=== PATIENT | male | born 1965 | race Caucasian/White ===

== ENCOUNTER 2022-11-07 11:50 | Emergency (ER) | payer BC ==
[2022-11-07] MEDS ORDERED: Sodium Chloride 0.9% 1000 ML 1,000 ML IV STA ×2 (11:57→13:35)
--- NOTE | 2022-11-07 11:57 | ERPHSYRPT ---
- History of Present Illness Time Seen by Provider: 11/07/22 11:57 Historian: patient, family Exam Limitations: no limitations Physician History: This is a 57-year-old white male who has a history of diabetes and was recently placed on Ozempic and then had an increase in his dosage recently. Initially he was having some constipation. Approximately 2 days ago he began having some diarrhea and it has increased in amount of frequency. Patient states in the last 2 days he has been having clear liquid bowel movements every 30 minutes. He has been vomiting and he is having generalized abdominal pain. Patient has a history of diabetes, hypertension and hyperlipidemia. Patient has had Dilaudid in the past which controlled his pain well and he had no difficulty or adverse effects with this medication per his recollection. Timing/Duration: day(s) (2) Activities at Onset: none Quality: cramping Abdominal Pain Onset Location: generalized abdomen Severity of Pain-Max: moderate Severity of Pain-Current: moderate Modifying Factors: Improves With: vomiting, other Associated Symptoms: diarrhea, loss of appetite, nausea (Diarrhea), vomiting Previous symptoms: no prior history Allergies/Adverse Reactions: nalbuphine [From Nubain] Allergy (Verified 11/07/22 11:54) Home Medications: Cyclobenzaprine HCl 10 mg [Cyclobenzaprine 10 MG] 10 mg PO TID PRN 11/07/22 [History] Gabapentin 300 mg PO BID 11/07/22 [History] Losartan Potassium 25 mg PO DAILY 11/07/22 [History] Nortriptyline HCl [Pamelor] 50 mg PO DAILY 11/07/22 [History] Olmesartan Medoxomil 40 mg PO DAILY 11/07/22 [History] Ondansetron ODT 4 MG [Zofran Odt 4 mg] 1 mg PO TID PRN 11/07/22 [History] Pravastatin Sodium 20 mg PO DAILY 11/07/22 [History] Semaglutide [Ozempic] 0.25 mg SQ WEEKLY 11/07/22 [History] Zolpidem Tartrate 10 mg [Ambien 10 MG] 10 mg PO HS 11/07/22 [History] glipiZIDE [Glipizide] 20 mg PO DAILY 11/07/22 [History] Travel Risk - International Travel Have you traveled outside of the country in past 3 weeks: No - Coronavirus Screening Are you exhibiting any of the following symptoms?: Yes Symptoms: Vomiting/Diarrhea Close contact with a COVID-19 positive Pt in past 14-21 Days: No - Review of Systems Constitutional: Weakness Eyes: No Symptoms Ears, Nose, & Throat: No Symptoms Respiratory: No Symptoms Cardiac: No Symptoms Abdominal/Gastrointestinal: Abdominal Pain, Nausea, Vomiting, Diarrhea, No Constipation Genitourinary Symptoms: No Symptoms Musculoskeletal: No Symptoms Skin: No Symptoms Neurological: No Symptoms Psychological: No Symptoms Endocrine: No Symptoms Hematologic/Lymphatic: No Symptoms Immunological/Allergic: No Symptoms All Other Systems: Reviewed and Negative - Past Medical History Pertinent Past Medical History: Yes - Past Surgical History Past Surgical History: Yes - Nursing Vital Signs Nursing Vital Signs: Initial Vital Signs Temperature 97.9 F 11/07/22 11:57 Pulse Rate 98 H 11/07/22 11:57 Respiratory Rate 16 11/07/22 11:57 Blood Pressure 153/105 11/07/22 11:57 O2 Sat by Pulse Oximetry 98 11/07/22 11:57 Pain Scale Pain Intensity 4 - Physical Exam General Appearance: mild distress, alert, anxiety, obese Eye Exam: PERRL/EOMI, eyes nml inspection Ears, Nose, Throat Exam: normal ENT inspection, moist mucous membranes Neck Exam: normal inspection, non-tender, supple, full range of motion Respiratory Exam: normal breath sounds, lungs clear, airway intact, No chest tenderness, No respiratory distress Cardiovascular Exam: regular rate/rhythm, normal heart sounds, normal peripheral pulses Gastrointestinal/Abdomen Exam: soft, normal bowel sounds, tenderness (Diffuse), guarding, No pulsatile mass (Diffuse with palpation) Rectal Exam: not done Back Exam: normal inspection, normal range of motion, No CVA tenderness, No vertebral tenderness Extremity Exam: normal inspection, normal range of motion, pelvis stable Neurologic Exam: alert, oriented x 3, cooperative, utility repairer II-XII nml as tested, normal mood/affect, nml cerebellar function, nml station & gait, sensation nml Skin Exam: normal color, warm, dry Lymphatic Exam: No adenopathy SpO2 Interpretation: normal O2 Delivery: Room Air - Course Nursing assessment & vital signs reviewed: Yes Ordered Tests: Active Orders 24 hr Category Date Time Status IV Insertion STAT Care 11/07/22 11:57 Active ABDOMEN AND PELVIS W/0 CONTRAS [CT] Stat Exams 11/07/22 12:19 Completed AMYLASE Stat Lab 11/07/22 12:55 Completed BLOOD CULTURE Stat Lab 11/07/22 12:55 Received BMP Stat Lab 11/07/22 15:50 Completed CBC W DIFF Stat Lab 11/07/22 11:57 Completed CMP Stat Lab 11/07/22 12:55 Completed CULTURE,URINE Stat Lab 11/07/22 15:06 Received LIPASE Stat Lab 11/07/22 12:55 Completed UA W/RFX UR CULTURE Stat Lab 11/07/22 15:06 Completed Medication Summary Generic Name Dose Route Start Last Admin Trade Name Freq PRN Reason Stop Dose Admin Sodium Chloride 500 mls @ 500 mls/hr 11/07/22 16:17 11/07/22 16:20 Sodium Chloride 0.9% 500 Ml IV 11/07/22 17:16 500 mls/hr .Q1H ONE Administration Discontinued Medications Generic Name Dose Route Start Last Admin Trade Name Freq PRN Reason Stop Dose Admin Hydromorphone HCl 1 mg 11/07/22 12:18 11/07/22 12:23 Hydromorphone 1 Mg/1ml Inj 1 Mg/Ml Syringe IV 11/07/22 12:19 1 mg STAT ONE Administration Hydromorphone HCl Confirm 11/07/22 12:21 Hydromorphone 1 Mg/1ml Inj 1 Mg/Ml Syringe Administered 11/07/22 12:22 Dose 1 mg .ROUTE .STK-MED ONE Sodium Chloride 1,000 mls @ 999 mls/hr 11/07/22 11:57 11/07/22 13:24 Sodium Chloride 0.9% 1000 Ml IV 11/07/22 12:57 Infused .Q1H1M STA Infusion Sodium Chloride Confirm 11/07/22 12:21 Sodium Chloride 0.9% 1000 Ml Administered 11/07/22 12:22 Dose 1,000 mls @ ud .ROUTE .STK-MED ONE Sodium Chloride 1,000 mls @ 999 mls/hr 11/07/22 13:35 11/07/22 15:04 Sodium Chloride 0.9% 1000 Ml IV 11/07/22 14:35 Infused .Q1H1M STA Infusion Sodium Chloride Confirm 11/07/22 13:56 Sodium Chloride 0.9% 1000 Ml Administered 11/07/22 13:57 Dose 1,000 mls @ ud .ROUTE .STK-MED ONE Sodium Chloride Confirm 11/07/22 16:19 Sodium Chloride 0.9% 500 Ml Administered 11/07/22 16:20 Dose 500 mls @ ud IV .STK-MED ONE Metronidazole 500 mg 11/07/22 16:55 11/07/22 17:02 Metronidazole 500 Mg Tablet PO 11/07/22 16:56 500 mg STAT ONE Administration Ondansetron HCl 4 mg 11/07/22 12:18 11/07/22 12:22 Ondansetron Hcl 4 Mg/2 Ml Vial IV 11/07/22 12:19 4 mg STAT ONE Administration Ondansetron HCl Confirm 11/07/22 12:21 Ondansetron Hcl 4 Mg/2 Ml Vial Administered 11/07/22 12:22 Dose 4 mg .ROUTE .STK-MED ONE Lab/Rad Data: Laboratory Result Diagrams 11/07/22 11:57 11/07/22 15:50 Laboratory Results 11/07/22 11/07/22 11/07/22 Range/Units 15:50 15:06 13:31 WBC (4.0-10.5) x10^3/uL RBC (4.1-5.6) x10^6/uL Hgb (12.5-18.0) g/dL Hct (42-50) % MCV (78-100) fL MCH (26-32) pg MCHC (32-36) g/dL RDW (11.5-14.0) % Plt Count (150-450) x10^3/uL MPV (7.5-11.0) fL Gran % (36.0-66.0) % Immature Gran % (Auto) (0.00-0.4) % Nucleat RBC Rel Count (0.00-0.1) % Eos # (Auto) (0-0.5) x10^3/uL Immature Gran # (Auto) (0.00-0.03) x10^3u/L Absolute Lymphs (auto) (1.0-4.6) x10^3/uL Absolute Monos (auto) (0.0-1.3) x10^3/uL Absolute Nucleated RBC (0.00-0.01) x10^3u/L Lymphocytes % (24.0-44.0) % Monocytes % (0.0-12.0) % Eosinophils % (0.00-5.0) % Basophils % (0.0-0.4) % Absolute Granulocytes (1.4-6.9) x10^3/uL Basophils # (0-0.4) x10^3/uL Sodium 137 (137-145) mmol/L Potassium 4.0 (3.5-5.1) mmol/L Chloride 106 (98-107) mmol/L Carbon Dioxide 19 L (22-30) mmol/L Anion Gap 16.4 H (5-15) MEQ/L BUN 21 H (9-20) mg/dL Creatinine 1.06 (0.66-1.25) mg/dL Estimated GFR > 60.0 ML/MIN Glucose 148 H (74-106) mg/dL Calcium 8.5 (8.4-10.2) mg/dL Total Bilirubin (0.2-1.3) mg/dL AST (17-59) U/L ALT (0-50) U/L Alkaline Phosphatase (38-126) U/L Serum Total Protein (6.3-8.2) g/dL Albumin (3.5-5.0) g/dL Amylase (30-110) U/L Lipase (23-300) U/L Urine Color Dark Yellow (Yellow) Urine Appearance Cloudy A (Clear) Urine pH 5.5 (4.6-8.0) Ur Specific [place] 1.025 (1.005-1.030) Urine Protein 100 A (Negative) Urine Glucose (UA) 250 A (Negative) mg/dL Urine Ketones Trace A (Negative) Urine Blood Negative (Negative) Urine Nitrite Negative (Negative) Urine Bilirubin Negative (Negative) Urine Urobilinogen 0.2 (0.2) mg/dL Ur Leukocyte Esterase Negative (Negative) U Hyaline Cast (Auto) 26-50 A (0-2) /LPF Urine Microscopic RBC 0-2 (0-5) /HPF Urine Microscopic WBC 3-5 (0-5) /HPF Ur Epithelial Cells Few (None Seen) /HPF Urine Bacteria None Seen (None Seen) /HPF Urine Culture Reflexed YES (NO) C. difficile Screen NEGATIVE (NEGATIVE) C.difficile 027-[id number] PRESUMPTIVE NEGATIVE (NEGATIVE) Influenza Type A Ag (NEGATIVE) Influenza Type B Ag (NEGATIVE) RSV (PCR) (Negative) SARS-CoV-2 (PCR) (NEGATIVE) 11/07/22 11/07/22 11/07/22 Range/Units 12:55 12:55 11:57 WBC 16.7 H (4.0-10.5) x10^3/uL RBC 6.27 H (4.1-5.6) x10^6/uL Hgb 18.5 H (12.5-18.0) g/dL Hct 54.3 H (42-50) % MCV 86.6 (78-100) fL MCH 29.5 (26-32) pg MCHC 34.1 (32-36) g/dL RDW 11.8 (11.5-14.0) % Plt Count 325 (150-450) x10^3/uL MPV 12.3 H (7.5-11.0) fL Gran % 72.0 H (36.0-66.0) % Immature Gran % (Auto) 0.5 H (0.00-0.4) % Nucleat RBC Rel Count 0.0 (0.00-0.1) % Eos # (Auto) 0.16 (0-0.5) x10^3/uL Immature Gran # (Auto) 0.08 H (0.00-0.03) x10^3u/L Absolute Lymphs (auto) 3.38 (1.0-4.6) x10^3/uL Absolute Monos (auto) 0.93 (0.0-1.3) x10^3/uL Absolute Nucleated RBC 0.00 (0.00-0.01) x10^3u/L Lymphocytes % 20.2 L (24.0-44.0) % Monocytes % 5.6 (0.0-12.0) % Eosinophils % 1.0 (0.00-5.0) % Basophils % 0.7 (0.0-0.4) % Absolute Granulocytes 12.06 H (1.4-6.9) x10^3/uL Basophils # 0.11 (0-0.4) x10^3/uL Sodium 139 (137-145) mmol/L Potassium 3.6 (3.5-5.1) mmol/L Chloride 102 (98-107) mmol/L Carbon Dioxide 15 L* (22-30) mmol/L Anion Gap 25.6 H (5-15) MEQ/L BUN 24 H (9-20) mg/dL Creatinine 1.32 H (0.66-1.25) mg/dL Estimated GFR 59.2 ML/MIN Glucose 201 H (74-106) mg/dL Calcium 9.8 (8.4-10.2) mg/dL Total Bilirubin 1.10 (0.2-1.3) mg/dL AST 32 (17-59) U/L ALT 48 (0-50) U/L Alkaline Phosphatase 87 (38-126) U/L Serum Total Protein 8.9 H (6.3-8.2) g/dL Albumin 5.2 H (3.5-5.0) g/dL Amylase 82 (30-110) U/L Lipase 136 (23-300) U/L Urine Color (Yellow) Urine Appearance (Clear) Urine pH (4.6-8.0) Ur Specific [place] (1.005-1.030) Urine Protein (Negative) Urine Glucose (UA) (Negative) mg/dL Urine Ketones (Negative) Urine Blood (Negative) Urine Nitrite (Negative) Urine Bilirubin (Negative) Urine Urobilinogen (0.2) mg/dL Ur Leukocyte Esterase (Negative) U Hyaline Cast (Auto) (0-2) /LPF Urine Microscopic RBC (0-5) /HPF Urine Microscopic WBC (0-5) /HPF Ur Epithelial Cells (None Seen) /HPF Urine Bacteria (None Seen) /HPF Urine Culture Reflexed (NO) C. difficile Screen (NEGATIVE) C.difficile [id number] (NEGATIVE) Influenza Type A Ag NEGATIVE (NEGATIVE) Influenza Type B Ag NEGATIVE (NEGATIVE) RSV (PCR) NEGATIVE (Negative) SARS-CoV-2 (PCR) NEGATIVE (NEGATIVE) - Progress Progress: improved, re-examined Progress Note: 11/07/22 13:44 CAT scan of the abdomen pelvis without contrast shows mildly fluid distended small and large bowel loops with fluid leveling. ? ileus versus enterocolitis with diarrhea 11/07/22 17:04 This patient's medical issues of moderate complexity. This is based on the review of the patient's past medical history, medication list and review of his allergies. Is also based on the work-up that was performed which was also based on history of present illness and physical exam findings. Additional history was obtained from the patient's spouse. Work-up included placement of an IV line, intravenous fluid infusion, antiemetics, narcotic pain medicine intravenously, obtaining urinalysis, blood work and CAT scan of the abdomen pelvis. I reviewed the results of these studies. I also reviewed the results with the patient. The patient is significantly dehydrated. We had also ordered stool studies and there is no C. difficile toxin present. CAT scan of the abdomen pelvis shows an ileus versus enterocolitis. We gave the patient oral Flagyl. We provided the patient with oral fluid challenge which she tolerated. Patient was tolerating liquids after infusion of 2-1/2 L of normal saline intravenously. Patient is being discharged home with instructions to consume clear liquids for the next 12 to 16 hours. He should only advance his diet when he is tolerating clear liquids well. He is to stop his Ozempic and contact his prescribing provider tomorrow morning, 11/08/2022 to review all his medications and discuss any changes with the prescribing provider Counseled pt/family regarding: lab results, diagnosis, need for follow-up, rad results Medical Desision Making - Independent Historian Additional History obtained from: Spouse - Discussion of managment Reviewed:: Test results, Need for additional workup Agreed on:: Treatment plan, need for follow-up - Diagnostic Testing Diagnostic test were ordered, analyzed, and reviewed by me: Yes Radiological Interpretation: Reviewed by me, Teleradiologist Report - Risk of complications Minimal Risk: Minimal risk of morbidity Low Risk: Low risk of morbidity from additional dx testing or treatment The pt has a mod risk of morbidity or mortality based on: Need for prescription drug management - Departure Departure Disposition: Home Clinical Impression: Enterocolitis, Medication side effects Condition: Stable Critical Care Time: No Referrals: MARY ALICE HUNTER MD [Primary Care Provider] - Follow up/PCP as directed Additional Instructions: Clear liquid diet for the next 12 to 16 hours. Do not advance beyond this unless you are drinking clear liquids well. Take your antibiotics and use your antinausea medicine as prescribed. Stop your Ozempic. Follow-up with your prescribing provider tomorrow morning, 11/08/2022 for further evaluation and management. Discussed with your provider the medications you are taking and the possibility of needing to change medication or change dosages. Prescriptions: Ondansetron ODT 4 MG [Zofran Odt 4 mg] 4 mg PO Q6H PRN PRN #10 tablet PRN Reason: Vomiting Metronidazole 500 mg [Flagyl 500 MG] 500 mg PO TID #21 tablet
[2022-11-07] MEDS ORDERED: Zofran 4 MG/2 ML VIAL IV ONE ×2 (12:18→17:31)
[2022-11-07] MEDS ORDERED: Hydromorphone 1 mg/ml Injection IV ONE ×2 (12:18→17:31)
[2022-11-07] MEDS ORDERED: Zofran 4 MG/2 ML VIAL ONE ×2 (12:21→17:32)
[2022-11-07] MEDS ORDERED: Hydromorphone 1 mg/ml Injection ONE ×2 (12:21→17:32)
[2022-11-07] MEDS ORDERED: Sodium Chloride 0.9% 1000 ML 1,000 ML ONE ×2 (12:21→13:56)
--- NOTE | 2022-11-07 13:02 | XRAY ---
Indication: Diarrhea. Multiple contiguous axial images obtained through the abdomen and pelvis without contrast. Comparison: None Lung bases clear. Heart not enlarged. Stomach moderately fluid distended. Noncontrasted stomach and bowel loops appear nonobstructed. Mild fluid distended small and large bowel loops with fluid leveling, ileus versus enterocolitis with colonic diarrhea. Previous appendectomy and cholecystectomy. No free fluid/air. 5 mm right lobe hepatic cyst versus hemangioma. Remaining liver, pancreas, spleen, adrenal glands, kidneys, ureters, and bladder are unremarkable for noncontrast exam. Mild scattered aortoiliac calcifications without AAA. Osseous structures intact with mild degenerative changes of visualized thoracic spine. Impression: 1. Mildly fluid distended small and large bowel loops with fluid leveling, ileus versus enterocolitis with diarrhea. 2. Incidental tiny hepatic cyst/hemangioma and mild arteriosclerotic disease.
[2022-11-07 13:14] LABS: Absolute Neutrophil Ct (ANC) 12.06 x10^3/uL (1.4-6.9); BASOPHIL % 0.7 % (0.0-0.4); Basophil (Absolute #) 0.11 x10^3/uL (0-0.4); Eosinophil (Absolute #) 0.16 x10^3/uL (0-0.5); Hematocrit 54.3 % (42-50); Hemoglobin 18.5 g/dL (12.5-18.0); IMMATURE GRAN # 0.08 x10^3u/L (0.00-0.03); IMMATURE GRAN % 0.5 % (0.00-0.4); Lymphocyte (Absolute #) 3.38 x10^3/uL (1.0-4.6); Lymphocytes % 20.2 % (24.0-44.0); Mean Cell Volume 86.6 fL (78-100); Mean Corpuscular Hemoglobin 29.5 pg (26-32); Mean Corpuscular Hgb Concent. 34.1 g/dL (32-36); Mean Platelet Volume 12.3 fL (7.5-11.0); Monocyte (Absolute #) 0.93 x10^3/uL (0.0-1.3); Monocytes % 5.6 % (0.0-12.0); Platelet Count 325 x10^3/uL (150-450); Red Blood Count 6.27 x10^6/uL (4.1-5.6); Red Cell Distribution Width 11.8 % (11.5-14.0); White Blood Count 16.7 x10^3/uL (4.0-10.5)
[2022-11-07 13:34] LABS: ALBUMIN 5.2 g/dL (3.5-5.0); BILIRUBIN,TOTAL 1.1 mg/dL (0.2-1.3); Calcium 9.8 mg/dL (8.4-10.2); Creatinine 1 1.32 mg/dL (0.66-1.25); EST GLOMERULAR FILTRATION RATE 59.2 ML/MIN; Potassium 3.6 mmol/L (3.5-5.1); Total Protein 8.9 g/dL (6.3-8.2)
[2022-11-07 13:54] LABS: ANION GAP 25.6 MEQ/L (5-15)
[2022-11-07 14:06] LABS: INFLUENZA A NEGATIVE (NEGATIVE); INFLUENZA B NEGATIVE (NEGATIVE); RESPIRATORY SYNCTIAL VIRUS NEGATIVE (Negative); SARS-CoV-2 Xpert Express NEGATIVE (NEGATIVE)
[2022-11-07 14:17] LABS: 027 TOX PROD PRESUMPTIVE NEGATIVE (NEGATIVE); TOXIGENIC C. DIFF ORG NEGATIVE (NEGATIVE)
[2022-11-07 15:56] LABS: Appearance Cloudy (Clear); Bacteria None Seen /HPF (None Seen); Bilirubin Negative (Negative); Blood Negative (Negative); Epithelial Cells Few /HPF (None Seen); Glucose, Urine 250 mg/dL (Negative); Ketones Trace (Negative); Leukocyte Esterase Negative (Negative); Nitrite Negative (Negative); Ph 5.5 (4.6-8.0); Protein,Urine Dip 100 (Negative); RBC 0-2 /HPF (0-5); Specific Gravity 1.025 (1.005-1.030); Urobilinogen 0.2 mg/dL (0.2)
[2022-11-07 15:57] LABS: ADD URINE CULTURE? YES (NO); Hyaline Casts 26-50 /LPF (0-2)
[2022-11-07 16:05] LABS: ANION GAP 16.4 MEQ/L (5-15); BLOOD UREA NITROGEN 21 mg/dL (9-20); CHLORIDE 106 mmol/L (98-107); Calcium 8.5 mg/dL (8.4-10.2); Carbon Dioxide 19 mmol/L (22-30); Creatinine 1 1.06 mg/dL (0.66-1.25); EST GLOMERULAR FILTRATION RATE > 60.0 ML/MIN; Glucose 148 mg/dL (74-106); SODIUM 137 mmol/L (137-145)
[2022-11-07] MEDS ORDERED: Sodium Chloride 0.9% 500 ML 500 ML IV ONE ×2 (16:17→16:19)
[2022-11-07] MEDS ORDERED: Flagyl 500 MG PO ONE (16:55)
[2022-11-07] MEDS ORDERED: Flagyl 500 MG ONE (17:02)
[2022-11-07 18:09] VITALS: BP 151/88; PULSE 84; O2SAT 95
[2022-11-10 06:09] LABS: Adenovirus F40/41 Not Detected (Not Detected); Astrovirus Not Detected (Not Detected); Campylobacter Not Detected (Not Detected); Cryptosporidium Not Detected (Not Detected); Cyclospora cayetanensis Not Detected (Not Detected); Entamoeba histolytica Not Detected (Not Detected); Enteroaggregative E coli Not Detected (Not Detected); Enterpathogenic E coli Not Detected (Not Detected); Entertoxigenic E coli Not Detected (Not Detected); Giardia lamblia Not Detected (Not Detected); Norovirus GI/GII Not Detected (Not Detected); Plesiomonas shigelloides Not Detected (Not Detected); Rotavirus A Not Detected (Not Detected); Salmonella Not Detected (Not Detected); Shig-toxin-producing E coli Not Detected (Not Detected); Shigella/Enterinvasive E coli Not Detected (Not Detected); Vibrio Not Detected (Not Detected); Vibrio cholerae Not Detected (Not Detected); Yersinia enterocolitica Not Detected (Not Detected)
[2022-11-10 06:31] LABS: Sapovirus Not Detected (Not Detected)
== END 2022-11-07 18:08 | disposition home or self-care (01) ==
LOC: ED 11:50
DX: K52.1 Toxic gastroenteritis and colitis (principal); T50.995A Adverse effect of other drugs, medicaments and biological substances, initial encounter; R19.7 Diarrhea, unspecified; R10.84 Generalized abdominal pain; E11.9 Type 2 diabetes mellitus without complications; I10 Essential (primary) hypertension; E78.5 Hyperlipidemia, unspecified; Z79.84 Long term (current) use of oral hypoglycemic drugs; Z79.85 Long-term (current) use of injectable non-insulin antidiabetic drugs; Z79.899 Other long term (current) drug therapy
CPT/HCPCS: 0241U; 36000; 36415; 74176; 80048; 80053; 81001; 82150; 83690; 85025; 87040; 87086; 87493; 87507; 96360; 96374; 96375; 99284; J1170; J2405; A9270-GY

== ENCOUNTER 2024-02-17 17:47 | Emergency (ER) | payer BC ==
[2024-02-17 18:37] VITALS: TEMP 97.2
--- NOTE | 2024-02-17 19:31 | ERPHSYRPT ---
- History of Present Illness Time Seen by Provider: 02/17/24 19:20 Historian: patient Exam Limitations: no limitations Patient Subjective Stated Complaint: pt here for abd pain,nausea,loose stools, not eating well. pt states they increased hes diabtic meds 2 weeks ago and has not felt well since, Triage Nursing Assessment: pt alert. walked in, resp easy, skin w/d/p. abd flat, no edema noted, moves all ext well Physician History: 58yo m presents for abdominal pain and diarrhea x 3d. Pt reports he started having liquid, brown, non-bloody stools on night, was seen by his PCP on Sunday and started on anti-diarrheal medications w/o significant relief. Pt denies any nausea or vomiting, does report significant reflux and some epigastric pain. Pt states he had his dose of mounjaro increased 1wk ago and has had abdominal discomfort since. Pt denies any recent travel, does not believe he would have come in contact w/ any foods that would have made him sick either. Pt reports poor PO intake for the past 3 days. Timing/Duration: day(s) (3) Activities at Onset: none Quality: aching, cramping Abdominal Pain Onset Location: LLQ, epigastric Pain Radiation: no radiation Severity of Pain-Max: mild Severity of Pain-Current: mild Modifying Factors: Improves With: nothing Associated Symptoms: diarrhea, fatigue, heartburn, loss of appetite, No fever/chills, No headache, No nausea, No vomiting Allergies/Adverse Reactions: nalbuphine [From Nubain] Allergy (Verified 02/17/24 18:25) Home Medications: Olmesartan Medoxomil 40 mg PO DAILY 11/07/22 [History] glipiZIDE [Glipizide] 20 mg PO DAILY 11/07/22 [History] Dapagliflozin Propanediol [Farxiga] 1 ea DAILY 02/17/24 [History] Fenofibrate [Fenoglide] 40 mg PO DAILY 02/17/24 [History] Pregabalin 200 mg PO BID 02/17/24 [History] Hx Tetanus, Diphtheria Vaccination/Date Given: No Hx Influenza Vaccination/Date Given: No Hx Pneumococcal Vaccination/Date Given: No Immunizations Up to Date: Yes Travel Risk - International Travel Have you traveled outside of the country in past 3 weeks: No - Emerging Infectious Disease Are you exhibiting symptoms associated with any current EIDs: Yes Symptoms: Abdominal Pain - Review of Systems Constitutional: Chills, No Fever Respiratory: No Symptoms Cardiac: No Symptoms Abdominal/Gastrointestinal: Abdominal Pain, Diarrhea, No Nausea, No Vomiting, No Hematemesis, No Hematochezia, No Melena Genitourinary Symptoms: No Symptoms - Past Medical History Pertinent Past Medical History: Yes Neurological History: Peripheral Neuropathy ENT History: No Pertinent History Cardiac History: High Cholesterol, Hypertension Respiratory History: No Pertinent History Endocrine Medical History: Diabetes Type II Musculoskeletal History: Arthritis GI Medical History: No Pertinent History History: No Pertinent History Psycho-Social History: No Pertinent History Male Reproductive Disorders: No Pertinent History - Past Surgical History Past Surgical History: Yes Neuro Surgical History: No Pertinent History Cardiac: No Pertinent History Respiratory: No Pertinent History Gastrointestinal: Appendectomy, Cholecystectomy Genitourinary: No Pertinent History Musculoskeletal: Orthopedic Surgery Male Surgical History: No Pertinent History Other Surgical History: ACL repair, felipe shoulder surgery - Social History Smoking Status: Never smoker How long have you smoked: 40 Exposure to second hand smoke: No Drug Use: none Patient Lives Alone: No - Social Determinants of Health Will the patient participate in the screening: Declined to provide - Nursing Vital Signs Nursing Vital Signs: Initial Vital Signs Temperature 97.2 F 02/17/24 18:36 Pulse Rate 90 02/17/24 18:36 Respiratory Rate 18 02/17/24 18:36 Blood Pressure 147/88 02/17/24 18:36 O2 Sat by Pulse Oximetry 97 02/17/24 18:36 Pain Scale Pain Intensity 8 - Physical Exam General Appearance: no apparent distress, alert Respiratory Exam: normal breath sounds, lungs clear, airway intact, No chest tenderness, No respiratory distress Cardiovascular Exam: regular rate/rhythm, normal heart sounds, No murmur Gastrointestinal/Abdomen Exam: soft, normal bowel sounds, tenderness (LLQ, epigastric region), No distention, No mass, No guarding, No rebound Neurologic Exam: alert, oriented x 3, cooperative SpO2 Interpretation: normal SpO2: 97 O2 Delivery: Room Air Ordered Tests: Active Orders 24 hr Category Date Time Status IV Insertion STAT Care 02/17/24 19:31 Active ABDOMEN AND PELVIS W CONTRAST [CT] Stat Exams 02/17/24 19:33 Completed BLOOD CULTURE Stat Lab 02/17/24 21:33 Ordered CBC W DIFF Stat Lab 02/17/24 20:19 Completed CMP Stat Lab 02/17/24 20:19 Completed LIPASE Stat Lab 02/17/24 20:19 Completed Lactic Acid Stat Lab 02/17/24 21:19 Completed Manual Differential NC Stat Lab 02/17/24 20:19 Completed Medication Summary Discontinued Medications Generic Name Dose Route Start Last Admin Trade Name Hallie PRN Reason Stop Dose Admin Sodium Chloride 1,000 mls @ 999 mls/hr 02/17/24 19:31 02/17/24 20:55 Sodium Chloride 0.9% 1000 Ml IV 02/17/24 20:31 Infused .Q1H1M STA Infusion Sodium Chloride Confirm 02/17/24 19:51 Sodium Chloride 0.9% 1000 Ml Administered 02/17/24 19:52 Dose 1,000 mls @ ud .ROUTE .STK-MED ONE Sodium Chloride 1,000 mls @ 999 mls/hr 02/17/24 22:56 02/18/24 00:01 Sodium Chloride 0.9% 1000 Ml IV 02/17/24 23:56 Infused .Q1H1M STA Infusion Sodium Chloride Confirm 02/17/24 22:57 Sodium Chloride 0.9% 1000 Ml Administered 02/17/24 22:58 Dose 1,000 mls @ ud .ROUTE .STK-MED ONE Morphine Sulfate 2 mg 02/18/24 00:57 02/18/24 01:08 Morphine Sulfate 2 Mg/Ml Inj IV 02/18/24 00:58 2 mg STAT ONE Administration Morphine Sulfate Confirm 02/18/24 01:06 Morphine Sulfate 2 Mg/Ml Inj Administered 02/18/24 01:07 Dose 2 mg .ROUTE .STK-MED ONE Ondansetron HCl 4 mg 02/17/24 19:31 02/17/24 19:54 Ondansetron Hcl 4 Mg/2 Ml Vial IV 02/17/24 19:32 4 mg STAT ONE Administration Ondansetron HCl Confirm 02/17/24 19:51 Ondansetron Hcl 4 Mg/2 Ml Vial Administered 02/17/24 19:52 Dose 4 mg .ROUTE .STK-MED ONE Pantoprazole Sodium 40 mg 02/17/24 22:57 02/17/24 22:58 Pantoprazole 40 Mg Vial IV 02/17/24 22:58 40 mg STAT ONE Administration Pantoprazole Sodium Confirm 02/17/24 22:57 Pantoprazole 40 Mg Vial Administered 02/17/24 22:58 Dose 40 mg IV .[facility] ONE Lab/Rad Data: Laboratory Result Diagrams 02/17/24 20:19 02/17/24 20:19 Laboratory Results 02/17/24 02/17/24 02/17/24 Range/Units 21:19 20:19 20:19 WBC (4.23-9.07) x10^3/uL RBC (4.63-6.08) x10^6/uL Hgb (13.7-17.5) g/dL Hct (40.1-51.0) % MCV (79.0-92.2) fL MCH (25.7-32.2) pg MCHC (32.3-36.5) g/dL RDW (11.6-14.4) % Plt Count (163-337) x10^3/uL MPV (9.4-12.4) fL Segmented Neutrophils (1.78-5.38) % Band Neutrophils (0.0-2.0) % Lymphocytes (Manual) (24-44) % Monocytes (Manual) (0.0-12.0) % Platelet Estimate (NORMAL) RBC Morphology Sodium 134 L (135-145) mmol/L Potassium 3.4 L (3.5-5.1) mmol/L Chloride 103 (98-107) mmol/L Carbon Dioxide 19 L (22-30) mmol/L Anion Gap 15.4 H (5-15) MEQ/L BUN 13 (9-20) mg/dL Creatinine 0.92 (0.66-1.25) mg/dL Estimated GFR 95.8 ML/MIN Glucose 166 H (74-106) mg/dL Lactic Acid 1.1 (0.4-2.0) Calcium 9.1 (8.4-10.2) mg/dL Total Bilirubin 0.90 (0.2-1.3) mg/dL AST 15 L (17-59) U/L ALT 21 (0-50) U/L Alkaline Phosphatase 73 (38-126) U/L Serum Total Protein 7.1 (6.3-8.2) g/dL Albumin 4.2 (3.5-5.0) g/dL Lipase 48 (23-300) U/L 02/17/24 Range/Units 20:19 WBC 16.8 H (4.23-9.07) x10^3/uL RBC 5.72 (4.63-6.08) x10^6/uL Hgb 17.0 (13.7-17.5) g/dL Hct 48.9 (40.1-51.0) % MCV 85.5 (79.0-92.2) fL MCH 29.7 (25.7-32.2) pg MCHC 34.8 (32.3-36.5) g/dL RDW 12.2 (11.6-14.4) % Plt Count 228 (163-337) x10^3/uL MPV 12.2 (9.4-12.4) fL Segmented Neutrophils 79 H (1.78-5.38) % Band Neutrophils 1 (0.0-2.0) % Lymphocytes (Manual) 16 L (24-44) % Monocytes (Manual) 4 (0.0-12.0) % Platelet Estimate NORMAL (NORMAL) RBC Morphology NORMAL Sodium (135-145) mmol/L Potassium (3.5-5.1) mmol/L Chloride (98-107) mmol/L Carbon Dioxide (22-30) mmol/L Anion Gap (5-15) MEQ/L BUN (9-20) mg/dL Creatinine (0.66-1.25) mg/dL Estimated GFR ML/MIN Glucose (74-106) mg/dL Lactic Acid (0.4-2.0) Calcium (8.4-10.2) mg/dL Total Bilirubin (0.2-1.3) mg/dL AST (17-59) U/L ALT (0-50) U/L Alkaline Phosphatase (38-126) U/L Serum Total Protein (6.3-8.2) g/dL Albumin (3.5-5.0) g/dL Lipase (23-300) U/L - Progress Progress: improved Progress Note: 02/18/24 01:22 CT abd/pel 1. 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 2. No other acute abdominopelvic abnormality is identified. 3. The rest of the findings are as stated above. likely viral GI infection causing diarrhea and abdominal discomfort in association w/ mildly increased wbc; GI upset could also be caused by recent increase in GLP1 dose received 2L IV NS in ED w/ some improvement in sx pt continues to have loose stools, no recent abx use - low suspicion for cdiff pt requesting to dc home, I believe pt is appropriate for dc plan for dc home w/ PCP f/u this week to discuss continued abdominal issues recommend bland diet, oral hydration w/ gatorade/clear liquids tylenol/ibuprofen for discomfort return to ED if: develop fevers that do not resolve w/ tylenol/ibuprofen, de velop unbearable abdominal pain, develop bloody stools or bloody vomiting Counseled pt/family regarding: lab results, diagnosis, need for follow-up, rad results Medical Desision Making - Diagnostic Testing Diagnostic test were ordered, analyzed, and reviewed by me: Yes Radiological Interpretation: Reviewed by me, Teleradiologist Report - Risk of complications Minimal Risk: Minimal risk of morbidity - Departure Departure Disposition: Home Clinical Impression: Abdominal pain Qualifiers: Abdominal location: epigastric Qualified Code(s): R10.13 - Epigastric pain Diarrhea Qualifiers: Diarrhea type: unspecified type Qualified Code(s): R19.7 - Diarrhea, unspecified Condition: Stable Critical Care Time: No Referrals: MARY ALICE HUNTER MD [Primary Care Provider] - Follow up/PCP as directed Additional Instructions: plan for dc home w/ PCP f/u this week to discuss continued abdominal issues recommend bland diet, oral hydration w/ gatorade/clear liquids tylenol/ibuprofen for discomfort return to ED if: develop fevers that do not resolve w/ tylenol/ibuprofen, develop unbearable abdominal pain, develop bloody stools or bloody vomiting
[2024-02-17] MEDS ORDERED: Sodium Chloride 0.9% 1000 ML 1,000 ML ONE ×2 (19:51→22:57)
[2024-02-17] MEDS ORDERED: Zofran 4 MG/2 ML VIAL ONE (19:51)
[2024-02-17] MEDS: Sodium Chloride 0.9% 1000 ML 1,000 ML IV STA ×2 (19:53→22:58)
[2024-02-17] MEDS: Zofran 4 MG/2 ML VIAL IV ONE (19:54)
[2024-02-17 20:22] LABS: Hematocrit 48.9 % (40.1-51.0); Mean Cell Volume 85.5 fL (79.0-92.2); Mean Corpuscular Hemoglobin 29.7 pg (25.7-32.2); Mean Corpuscular Hgb Concent. 34.8 g/dL (32.3-36.5); Mean Platelet Volume 12.2 fL (9.4-12.4); Platelet Count 228 x10^3/uL (163-337); Red Blood Count 5.72 x10^6/uL (4.63-6.08); Red Cell Distribution Width 12.2 % (11.6-14.4); White Blood Count 16.8 x10^3/uL (4.23-9.07)
[2024-02-17 20:44] LABS: ALBUMIN 4.2 g/dL (3.5-5.0); ANION GAP 15.4 MEQ/L (5-15); BILIRUBIN,TOTAL 0.9 mg/dL (0.2-1.3); Calcium 9.1 mg/dL (8.4-10.2); Creatinine 1 0.92 mg/dL (0.66-1.25); EST GLOMERULAR FILTRATION RATE 95.8 ML/MIN; Potassium 3.4 mmol/L (3.5-5.1); Total Protein 7.1 g/dL (6.3-8.2)
[2024-02-17 21:56] LABS: BAND 1 % (0.0-2.0); Lymphocytes 16 % (24-44); Monocyte 4 % (0.0-12.0); Neutrophils 79 % (1.78-5.38); Platelet Estimate NORMAL (NORMAL); Total Cells Counted 100
--- NOTE | 2024-02-17 22:49 | XRAY ---
CLINICAL HISTORY: epigastric, LLQ pain COMPARISON: None. TECHNIQUE: A CT scan of the abdomen and pelvis was performed with IV contrast 80 cc Isovue 370. Coronal and sagittal reconstructive images were also obtained. One of the following dose reduction techniques was utilized for this exam: Automated exposure control, adjustment of the mA and/or kV according to patient size, and use of iterative reconstruction. FINDINGS: Abdomen: Mild mesenteric fat stranding is identified in the mid abdomen, slightly towards the left of the midline with multiple [id number] reactive mesenteric lymph nodes representing features of mesenteric panniculitis. The liver is normal in size with normal parenchymal enhancement and regular margins. A tiny hypodense cystic focus is identified within segment 7 of the right hepatic lobe measuring 6 x 5 mm on the axial section likely representing a hepatic cyst. No other focal or diffuse parenchymal abnormality. The portal vein, intrahepatic biliary radicals, and the bile ducts are normal. The spleen, pancreas, and adrenal glands are unremarkable. The kidneys are unremarkable. They are normal in size and shape. No calculi or hydronephrosis. The gallbladder is surgically removed. The ascending colon, the transverse colon, the descending colon, visualized small bowel loops are unremarkable. There is no evidence of significant enlargement of the mesenteric or retroperitoneal lymph nodes. Atherosclerotic calcifications are identified in the abdominal aorta and some of its major branches including the splenic vessels. The major abdominal pelvic vessels are otherwise normally opacified with contrast. Pelvis: The urinary bladder is suboptimally distended however, appears grossly unremarkable. The rectosigmoid colon is unremarkable. The appendix is unremarkable. The prostate is mildly enlarged. Multiple pelvic phleboliths are identified. The pelvic vasculature is unremarkable. No evidence of pelvic lymphadenopathy. Mild spondylotic changes are identified in the visualized spine. No other significant acute osseous abnormalities were identified. Visualized lung bases are clear bilaterally. IMPRESSION: 1. 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 2. No other acute abdominopelvic abnormality is identified. 3. The rest of the findings are as stated above. [facility] ER was called at [phone] on 09:41 PM [facility], 02/17/2024, and Dr Alexa Marcelino was informed regarding Important medical findings. Electronically Signed by: Miko Spence MD. (02/17/2024 22:45:02 EDT)
[2024-02-17] MEDS ORDERED: PROTONIX 40 MG IV IV ONE (22:57)
[2024-02-17] MEDS: PROTONIX 40 MG IV IV ONE (22:58)
[2024-02-18] MEDS ORDERED: MORPHINE SULFATE 2 MG INJ ONE (01:06)
[2024-02-18] MEDS: MORPHINE SULFATE 2 MG INJ IV ONE (01:08)
[2024-02-18 01:26] VITALS: O2SAT 97
[2024-02-18 02:02] VITALS: BP 160/95; PULSE 74; RESP 18
== END 2024-02-18 02:04 | disposition home or self-care (01) ==
LOC: ED 17:47
DX: R10.13 Epigastric pain (principal); R19.7 Diarrhea, unspecified; E78.5 Hyperlipidemia, unspecified; I10 Essential (primary) hypertension; E11.42 Type 2 diabetes mellitus with diabetic polyneuropathy; Z79.84 Long term (current) use of oral hypoglycemic drugs; Z79.85 Long-term (current) use of injectable non-insulin antidiabetic drugs; Z79.899 Other long term (current) drug therapy
CPT/HCPCS: 36000; 36415; 74177; 80053; 83605; 83690; 85025; 87040; 96374; 96375; 99284; J2270; J2405

== ENCOUNTER 2024-02-18 23:19 | Emergency (ER) | payer BC ==
--- NOTE | 2024-02-18 23:25 | ERPHSYRPT ---
- History of Present Illness Time Seen by Provider: 02/18/24 23:25 Historian: patient Exam Limitations: no limitations Physician History: This is a 58-year-old white male patient who has had diarrhea, watery stools for 4 days. Patient was seen here in this emergency department 24 hours ago. He was also seen Sunday, prior to his evaluation here today, by his PCP. His primary care provider prescribed him Imodium to help control his diarrhea. Patient's physician I also reviewed the patient's laboratory data results from 02/17/2024. Patient did have an elevated white count of 16.8 and a left shift present. Increased his Mounjaro medication 1 week ago. I reviewed the CT scan of the abdomen pelvis that was performed on 02/17/2024. This showed mesenteric panniculitis/lymphadenitis. Patient denies chest pain. Patient denies shortness of breath. Patient still has intermittent crampy abdominal pain. Patient has a history of diabetes, hypertension, hyperlipidemia and peripheral neuropathy Timing/Duration: day(s) (4) Quality: cramping Abdominal Pain Onset Location: generalized abdomen Severity of Pain-Max: mild Severity of Pain-Current: mild Associated Symptoms: diarrhea, loss of appetite, weakness Previous symptoms: same symptoms as today, recently seen, recently treated Allergies/Adverse Reactions: nalbuphine [From Nubain] Allergy (Verified 02/18/24 23:29) Home Medications: Olmesartan Medoxomil 40 mg PO DAILY 11/07/22 [History] glipiZIDE [Glipizide] 10 mg PO DAILY 11/07/22 [History] Dapagliflozin Propanediol [Farxiga] 1 ea PO DAILY 02/17/24 [History] Fenofibrate [Fenoglide] 40 mg PO DAILY 02/17/24 [History] Pregabalin 200 mg PO BID 02/17/24 [History] Loperamide HCl 2 mg [Imodium 2 mg] 2 tab PO Q8H PRN PRN 02/18/24 [History] Tirzepatide [Mounjaro] 5 mg SQ UD 02/18/24 [History] Zolpidem Tartrate [Ambien Cr] 12.5 mg PO HS 02/18/24 [History] Hx Tetanus, Diphtheria Vaccination/Date Given: No Hx Influenza Vaccination/Date Given: No Hx Pneumococcal Vaccination/Date Given: No Travel Risk - International Travel Have you traveled outside of the country in past 3 weeks: No - Emerging Infectious Disease Are you exhibiting symptoms associated with any current EIDs: Yes Symptoms: Abdominal Pain, Diarrhea - Review of Systems Constitutional: Weakness Eyes: No Symptoms Ears, Nose, & Throat: No Symptoms Respiratory: No Symptoms Cardiac: No Symptoms Abdominal/Gastrointestinal: Abdominal Pain, Diarrhea, Appetite Changes Genitourinary Symptoms: No Symptoms Musculoskeletal: No Symptoms Skin: No Symptoms Neurological: No Symptoms Psychological: No Symptoms Endocrine: No Symptoms Hematologic/Lymphatic: No Symptoms Immunological/Allergic: No Symptoms All Other Systems: Reviewed and Negative - Past Medical History Pertinent Past Medical History: Yes Neurological History: Peripheral Neuropathy ENT History: No Pertinent History Cardiac History: High Cholesterol, Hypertension Respiratory History: No Pertinent History Endocrine Medical History: Diabetes Type II Musculoskeletal History: Arthritis GI Medical History: No Pertinent History History: No Pertinent History Psycho-Social History: No Pertinent History Male Reproductive Disorders: No Pertinent History - Past Surgical History Past Surgical History: Yes Neuro Surgical History: No Pertinent History Cardiac: No Pertinent History Respiratory: No Pertinent History Gastrointestinal: Appendectomy, Cholecystectomy Genitourinary: No Pertinent History Musculoskeletal: Orthopedic Surgery Male Surgical History: No Pertinent History Other Surgical History: ACL repair, felipe shoulder surgery - Social History Smoking Status: Never smoker How long have you smoked: 40 Exposure to second hand smoke: No Drug Use: none Patient Lives Alone: No - Social Determinants of Health Will the patient participate in the screening: Declined to provide - Nursing Vital Signs Nursing Vital Signs: Initial Vital Signs Temperature 97.4 F 02/18/24 23:29 Pulse Rate 100 H 02/18/24 23:29 Respiratory Rate 18 02/18/24 23:29 Blood Pressure 148/94 02/18/24 23:29 O2 Sat by Pulse Oximetry 99 02/18/24 23:29 Pain Scale Pain Intensity 0 - Physical Exam General Appearance: no apparent distress, alert, anxiety Eye Exam: PERRL/EOMI, eyes nml inspection Ears, Nose, Throat Exam: normal ENT inspection, moist mucous membranes Neck Exam: normal inspection, non-tender, supple, full range of motion Respiratory Exam: normal breath sounds, lungs clear, airway intact, No chest tenderness, No respiratory distress Cardiovascular Exam: regular rate/rhythm, normal heart sounds, normal peripheral pulses Gastrointestinal/Abdomen Exam: soft, normal bowel sounds, No tenderness, No guarding Rectal Exam: not done Back Exam: normal inspection, normal range of motion, No CVA tenderness, No vertebral tenderness Extremity Exam: normal inspection, normal range of motion, pelvis stable Neurologic Exam: alert, oriented x 3, cooperative, 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, normal mood/affect, nml cerebellar function, nml station & gait, sensation nml Skin Exam: normal color, warm, dry Lymphatic Exam: No adenopathy SpO2 Interpretation: normal O2 Delivery: Room Air - Course Nursing assessment & vital signs reviewed: Yes Ordered Tests: Active Orders 24 hr Category Date Time Status IV Insertion STAT Care 02/18/24 23:26 Active AMYLASE Stat Lab 02/18/24 23:45 Completed CBC W DIFF Stat Lab 02/18/24 23:45 Completed CMP Stat Lab 02/18/24 23:45 Completed CULTURE,URINE Stat Lab 02/19/24 01:00 Received LIPASE Stat Lab 02/18/24 23:45 Completed Lactic Acid Stat Lab 02/18/24 23:26 Completed Lactic Acid Stat Lab 02/19/24 02:21 Completed MAG [MAGNESIUM] Stat Lab 02/18/24 23:45 Completed MONO SCREEN Stat Lab 02/18/24 23:45 Completed Manual Differential NC Stat Lab 02/18/24 23:45 Completed UA W/RFX UR CULTURE Stat Lab 02/19/24 01:00 Completed Medication Summary Generic Name Dose Route Start Last Admin Trade Name Freq PRN Reason Stop Dose Admin Sodium Chloride 1,000 mls @ 999 mls/hr 02/19/24 02:30 02/19/24 03:40 Sodium Chloride 0.9% 1000 Ml IV 03/20/24 02:29 Infused .Q1H1M DAYDAY Infusion Metronidazole 500 mg 02/19/24 03:39 Metronidazole 500 Mg Tablet PO 02/19/24 03:40 STAT ONE Discontinued Medications Generic Name Dose Route Start Last Admin Trade Name Freq PRN Reason Stop Dose Admin Sodium Chloride 1,000 mls @ 999 mls/hr 02/18/24 23:26 02/19/24 01:18 Sodium Chloride 0.9% 1000 Ml IV 02/19/24 00:26 Infused .Q1H1M STA Infusion Sodium Chloride Confirm 02/18/24 23:57 Sodium Chloride 0.9% 1000 Ml Administered 02/18/24 23:58 Dose 1,000 mls @ ud .ROUTE .STK-MED ONE Lactated Ringer's 1,000 mls @ 999 mls/hr 02/19/24 00:24 02/19/24 02:32 Lactated Ringers IV 02/19/24 01:24 Infused .Q1H1M ONE Infusion Lactated Ringer's Confirm 02/19/24 01:11 Lactated Ringers Administered 02/19/24 01:12 Dose 1,000 mls @ ud IV .STK-MED ONE Ceftriaxone Sodium 1 gm in 100 mls @ 200 mls/hr 02/19/24 02:29 02/19/24 03:15 Rocephin 1 Gm / 100 Ml Nacl IV 02/19/24 02:58 Infused STAT ONE Infusion Ceftriaxone Sodium Confirm 02/19/24 02:32 Rocephin 1 Gm / 100 Ml Nacl Administered 02/19/24 02:33 Dose 1 gm in 100 mls @ ud IV .STK-MED ONE Morphine Sulfate 4 mg 02/18/24 23:42 02/19/24 00:06 Morphine Sulfate 4 Mg/Ml Injection IV 02/18/24 23:43 4 mg STAT ONE Administration Morphine Sulfate Confirm 02/18/24 23:57 Morphine Sulfate 4 Mg/Ml Injection Administered 02/18/24 23:58 Dose 4 mg .ROUTE .STK-MED ONE Ondansetron HCl 4 mg 02/18/24 23:39 02/19/24 00:04 Ondansetron Hcl 4 Mg/2 Ml Vial IV 02/18/24 23:40 4 mg STAT ONE Administration Ondansetron HCl Confirm 02/18/24 23:57 Ondansetron Hcl 4 Mg/2 Ml Vial Administered 02/18/24 23:58 Dose 4 mg .ROUTE .STK-MED ONE Pantoprazole Sodium 40 mg 02/18/24 23:39 02/19/24 00:05 Pantoprazole 40 Mg Vial IV 02/18/24 23:40 40 mg STAT ONE Administration Pantoprazole Sodium Confirm 02/18/24 23:57 Pantoprazole 40 Mg Vial Administered 02/18/24 23:58 Dose 40 mg IV .STK-MED ONE Lab/Rad Data: Laboratory Result Diagrams 02/18/24 23:45 02/18/24 23:45 Laboratory Results 06/11/24 06/11/24 06/11/24 Range/Units 02:21 01:00 01:00 WBC (4.23-9.07) x10^3/uL RBC (4.63-6.08) x10^6/uL Hgb (13.7-17.5) g/dL Hct (40.1-51.0) % MCV (79.0-92.2) fL MCH (25.7-32.2) pg MCHC (32.3-36.5) g/dL RDW (11.6-14.4) % Plt Count (163-337) x10^3/uL MPV (9.4-12.4) fL Sodium (135-145) mmol/L Potassium (3.5-5.1) mmol/L Chloride (98-107) mmol/L Carbon Dioxide (22-30) mmol/L Anion Gap (5-15) MEQ/L BUN (9-20) mg/dL Creatinine (0.66-1.25) mg/dL Estimated GFR ML/MIN Glucose (74-106) mg/dL Lactic Acid 1.0 (0.4-2.0) Calcium (8.4-10.2) mg/dL Magnesium (1.6-2.3) mg/dL Total Bilirubin (0.2-1.3) mg/dL AST (17-59) U/L ALT (0-50) U/L Alkaline Phosphatase (38-126) U/L Serum Total Protein (6.3-8.2) g/dL Albumin (3.5-5.0) g/dL Amylase (30-110) U/L Lipase (23-300) U/L Urine Color Dark Yellow (Yellow) Urine Appearance Clear (Clear) Urine pH 5.5 (4.6-8.0) Ur Specific [place] >=1.030 A (1.005-1.030) Urine Protein 100 A (Negative) Urine Glucose (UA) 100 A (Negative) mg/dL Urine Ketones 15 A (Negative) Urine Blood Negative (Negative) Urine Nitrite Negative (Negative) Urine Bilirubin Moderate A (Negative) Urine Urobilinogen 1.0 A (0.2) mg/dL Ur Leukocyte Esterase Trace A (Negative) U Hyaline Cast (Auto) 6-10 A (0-2) /LPF Urine Microscopic RBC 0-2 (0-5) /HPF Urine Microscopic WBC 6-10 A (0-5) /HPF Ur Epithelial Cells Few (None Seen) /HPF Urine Bacteria Few A (None Seen) /HPF Granular Casts 0-2 A (None Seen) /LPF Urine Mucus Many A (NEGATIVE) /HPF Urine Culture Reflexed YES (NO) Stl Occult Blood (IFOB) (NEGATIVE) C. difficile Screen NEGATIVE (NEGATIVE) C.difficile 027-NAP1-B1 PRESUMPTIVE NEGATIVE (NEGATIVE) Monoscreen (NEGATIVE) Influenza Type A Ag (NEGATIVE) Influenza Type B Ag (NEGATIVE) RSV (PCR) (NEGATIVE) SARS-CoV-2 (PCR) (NEGATIVE) 02/19/24 02/18/24 02/18/24 Range/Units 00:15 23:45 23:45 WBC (4.23-9.07) x10^3/uL RBC (4.63-6.08) x10^6/uL Hgb (13.7-17.5) g/dL Hct (40.1-51.0) % MCV (79.0-92.2) fL MCH (25.7-32.2) pg MCHC (32.3-36.5) g/dL RDW (11.6-14.4) % Plt Count (163-337) x10^3/uL MPV (9.4-12.4) fL Sodium (135-145) mmol/L Potassium (3.5-5.1) mmol/L Chloride (98-107) mmol/L Carbon Dioxide (22-30) mmol/L Anion Gap (5-15) MEQ/L BUN (9-20) mg/dL Creatinine (0.66-1.25) mg/dL Estimated GFR ML/MIN Glucose (74-106) mg/dL Lactic Acid 2.3 H (0.4-2.0) Calcium (8.4-10.2) mg/dL Magnesium (1.6-2.3) mg/dL Total Bilirubin (0.2-1.3) mg/dL AST (17-59) U/L ALT (0-50) U/L Alkaline Phosphatase (38-126) U/L Serum Total Protein (6.3-8.2) g/dL Albumin (3.5-5.0) g/dL Amylase (30-110) U/L Lipase (23-300) U/L Urine Color (Yellow) Urine Appearance (Clear) Urine pH (4.6-8.0) Ur Specific [place] (1.005-1.030) Urine Protein (Negative) Urine Glucose (UA) (Negative) mg/dL Urine Ketones (Negative) Urine Blood (Negative) Urine Nitrite (Negative) Urine Bilirubin (Negative) Urine Urobilinogen (0.2) mg/dL Ur Leukocyte Esterase (Negative) U Hyaline Cast (Auto) (0-2) /LPF Urine Microscopic RBC (0-5) /HPF Urine Microscopic WBC (0-5) /HPF Ur Epithelial Cells (None Seen) /HPF Urine Bacteria (None Seen) /HPF Granular Casts (None Seen) /LPF Urine Mucus (NEGATIVE) /HPF Urine Culture Reflexed (NO) Stl Occult Blood (IFOB) (NEGATIVE) C. difficile Screen (NEGATIVE) C.difficile 027-NAP1-B1 (NEGATIVE) Monoscreen NEGATIVE (NEGATIVE) Influenza Type A Ag NEGATIVE (NEGATIVE) Influenza Type B Ag NEGATIVE (NEGATIVE) RSV (PCR) NEGATIVE (NEGATIVE) SARS-CoV-2 (PCR) NEGATIVE (NEGATIVE) 02/18/24 02/18/24 02/18/24 Range/Units 23:45 23:45 01:00 WBC 14.5 H (4.23-9.07) x10^3/uL RBC 6.16 H (4.63-6.08) x10^6/uL Hgb 18.0 H (13.7-17.5) g/dL Hct 52.0 H (40.1-51.0) % MCV 84.4 (79.0-92.2) fL MCH 29.2 (25.7-32.2) pg MCHC 34.6 (32.3-36.5) g/dL RDW 12.1 (11.6-14.4) % Plt Count 259 (163-337) x10^3/uL MPV 12.4 (9.4-12.4) fL Sodium 134 L (135-145) mmol/L Potassium 3.5 (3.5-5.1) mmol/L Chloride 100 (98-107) mmol/L Carbon Dioxide 19 L (22-30) mmol/L Anion Gap 18.2 H (5-15) MEQ/L BUN 13 (9-20) mg/dL Creatinine 1.18 (0.66-1.25) mg/dL Estimated GFR 71.1 ML/MIN Glucose 179 H (74-106) mg/dL Lactic Acid (0.4-2.0) Calcium 9.7 (8.4-10.2) mg/dL Magnesium 1.8 (1.6-2.3) mg/dL Total Bilirubin 1.10 (0.2-1.3) mg/dL AST 18 (17-59) U/L ALT 22 (0-50) U/L Alkaline Phosphatase 75 (38-126) U/L Serum Total Protein 7.8 (6.3-8.2) g/dL Albumin 4.5 (3.5-5.0) g/dL Amylase 55 (30-110) U/L Lipase 38 (23-300) U/L Urine Color (Yellow) Urine Appearance (Clear) Urine pH (4.6-8.0) Ur Specific [place] (1.005-1.030) Urine Protein (Negative) Urine Glucose (UA) (Negative) mg/dL Urine Ketones (Negative) Urine Blood (Negative) Urine Nitrite (Negative) Urine Bilirubin (Negative) Urine Urobilinogen (0.2) mg/dL Ur Leukocyte Esterase (Negative) U Hyaline Cast (Auto) (0-2) /LPF Urine Microscopic RBC (0-5) /HPF Urine Microscopic WBC (0-5) /HPF Ur Epithelial Cells (None Seen) /HPF Urine Bacteria (None Seen) /HPF Granular Casts (None Seen) /LPF Urine Mucus (NEGATIVE) /HPF Urine Culture Reflexed (NO) Stl Occult Blood (IFOB) POSITIVE A (NEGATIVE) C. difficile Screen (NEGATIVE) C.difficile 027-NAP1-B1 (NEGATIVE) Monoscreen (NEGATIVE) Influenza Type A Ag (NEGATIVE) Influenza Type B Ag (NEGATIVE) RSV (PCR) (NEGATIVE) SARS-CoV-2 (PCR) (NEGATIVE) - Progress Progress: improved, re-examined Progress Note: 02/19/24 00:38 My medical decision making and the assignment of moderate complexity to this patient's medical issues today is based on review of the patient's past medical history, review of the patient's medication list, review of patient drug allergy list, history present illness and physical findings on examination. The workup in this patient includes placement of intravenous line, infusion of normal saline solution, amylase, lipase, lactic acid, urinalysis, magnesium level, viral swabs, monotest. I will also order C. difficile toxin test as well as send stool for GI profile. I will not repeat the CT scan of the abdomen pelvis as it was performed 24 hours ago. Differential diagnosis include but is not limited to pancreatitis, colitis, mesenteric adenitis/panniculitis, viral syndrome, dehydration 02/19/24 03:06 I interpreted the patient's laboratory data results. The patient has a UTI. He has mild dehydration. There is occult blood in the patient's stool. Counseled pt/family regarding: lab results, diagnosis, need for follow-up Medical Desision Making - Independent Historian Additional History obtained from: Spouse - Diagnostic Testing Diagnostic test were ordered, analyzed, and reviewed by me: Yes - Risk of complications The pt has a mod risk of morbidity or mortality based on: Need for prescription drug management - Departure Departure Disposition: Home Clinical Impression: Diarrhea, UTI (urinary tract infection), Colitis, Mild dehydration Condition: Stable Critical Care Time: No Referrals: MARY ALICE HUNTER MD [Primary Care Provider] - Follow up/PCP as directed Instructions: Colitis, Urinary Tract Infection, Adult ED Additional Instructions: Drink plenty of clear liquids before advancing your diet. Avoid fatty greasy spicy foods. Take your antibiotics and other medications as prescribed. Call your primary care provider later today, 02/19/2024, to make arrangements for follow-up appointment for further evaluation management. Prescriptions: Ciprofloxacin [Cipro 500 MG] 500 mg PO BID #14 tablet Metronidazole 500 mg [Flagyl 500 MG] 500 mg PO TID #21 tablet
[2024-02-18 23:40] VITALS: TEMP 97.4
[2024-02-18] MEDS ORDERED: PROTONIX 40 MG IV IV ONE (23:57)
[2024-02-18] MEDS ORDERED: MORPHINE SULFATE 4 MG INJ ONE (23:57)
[2024-02-18] MEDS ORDERED: Zofran 4 MG/2 ML VIAL ONE (23:57)
[2024-02-18] MEDS ORDERED: Sodium Chloride 0.9% 1000 ML 1,000 ML ONE (23:57)
[2024-02-19 00:01] LABS: Mean Cell Volume 84.4 fL (79.0-92.2); Mean Corpuscular Hemoglobin 29.2 pg (25.7-32.2); Mean Corpuscular Hgb Concent. 34.6 g/dL (32.3-36.5); Mean Platelet Volume 12.4 fL (9.4-12.4); Platelet Count 259 x10^3/uL (163-337); Red Blood Count 6.16 x10^6/uL (4.63-6.08); Red Cell Distribution Width 12.1 % (11.6-14.4); White Blood Count 14.5 x10^3/uL (4.23-9.07)
[2024-02-19] MEDS: Sodium Chloride 0.9% 1000 ML 1,000 ML IV STA (00:03)
[2024-02-19] MEDS: Zofran 4 MG/2 ML VIAL IV ONE (00:04)
[2024-02-19] MEDS: PROTONIX 40 MG IV IV ONE (00:05)
[2024-02-19] MEDS: MORPHINE SULFATE 4 MG INJ IV ONE (00:06)
[2024-02-19 00:13] LABS: ALBUMIN 4.5 g/dL (3.5-5.0); ANION GAP 18.2 MEQ/L (5-15); BILIRUBIN,TOTAL 1.1 mg/dL (0.2-1.3); Calcium 9.7 mg/dL (8.4-10.2); Creatinine 1 1.18 mg/dL (0.66-1.25); EST GLOMERULAR FILTRATION RATE 71.1 ML/MIN; MAGNESIUM 1.8 mg/dL (1.6-2.3); Potassium 3.5 mmol/L (3.5-5.1); Total Protein 7.8 g/dL (6.3-8.2)
[2024-02-19 00:36] LABS: INFLUENZA A NEGATIVE (NEGATIVE); INFLUENZA B NEGATIVE (NEGATIVE); RESPIRATORY SYNCTIAL VIRUS NEGATIVE (NEGATIVE); SARS-CoV-2 Xpert Express NEGATIVE (NEGATIVE)
[2024-02-19] MEDS ORDERED: Lactated Ringers 1,000 ML IV ONE (01:11)
[2024-02-19] MEDS: Lactated Ringers 1,000 ML IV ONE (01:24)
[2024-02-19 01:27] LABS: IFOB TEST RESULTS POSITIVE (NEGATIVE)
[2024-02-19 01:41] LABS: Appearance Clear (Clear); Bacteria Few /HPF (None Seen); Bilirubin Moderate (Negative); Blood Negative (Negative); Epithelial Cells Few /HPF (None Seen); Glucose, Urine 100 mg/dL (Negative); Granular Casts 0-2 /LPF (None Seen); Ketones 15 (Negative); Leukocyte Esterase Trace (Negative); Mucus Many /HPF (NEGATIVE); Nitrite Negative (Negative); Ph 5.5 (4.6-8.0); Protein,Urine Dip 100 (Negative); RBC 0-2 /HPF (0-5); Specific Gravity >=1.030 (1.005-1.030)
[2024-02-19 01:42] LABS: ADD URINE CULTURE? YES (NO)
[2024-02-19 01:58] LABS: 027 TOX PROD PRESUMPTIVE NEGATIVE (NEGATIVE); TOXIGENIC C. DIFF ORG NEGATIVE (NEGATIVE)
[2024-02-19 02:05] VITALS: O2SAT 96
[2024-02-19] MEDS ORDERED: Sodium Chloride 0.9% 1000 ML 1,000 ML ONE (02:32)
[2024-02-19] MEDS ORDERED: ROCEPHIN 1 GM / 100 ML NaCl 1 GM/100 ML IVPB IV ONE (02:32)
[2024-02-19] MEDS: ROCEPHIN 1 GM / 100 ML NaCl 1 GM/100 ML IVPB IV ONE (02:38)
[2024-02-19] MEDS: Sodium Chloride 0.9% 1000 ML 1,000 ML IV SCH (02:38)
[2024-02-19 03:12] VITALS: BP 163/95; PULSE 93; RESP 16
[2024-02-19] MEDS ORDERED: Flagyl 500 MG ONE (03:41)
[2024-02-19] MEDS: Flagyl 500 MG PO ONE (03:42)
[2024-02-19 07:08] LABS: BAND 8 % (0.0-2.0); Eosinophil 1 % (0.00-3.0); Lymphocytes 11 % (24-44); Monocyte 7 % (0.0-12.0); Neutrophils 73 % (1.78-5.38); Platelet Estimate NORMAL (NORMAL); Total Cells Counted 100
[2024-02-21 06:09] LABS: Adenovirus F40/41 Not Detected (Not Detected); Astrovirus Not Detected (Not Detected); Campylobacter Not Detected (Not Detected); Cryptosporidium Not Detected (Not Detected); Cyclospora cayetanensis Not Detected (Not Detected); Entamoeba histolytica Not Detected (Not Detected); Enteroaggregative E coli Not Detected (Not Detected); Enterpathogenic E coli Not Detected (Not Detected); Entertoxigenic E coli Not Detected (Not Detected); Giardia lamblia Not Detected (Not Detected); Norovirus GI/GII Not Detected (Not Detected); Plesiomonas shigelloides Not Detected (Not Detected); Rotavirus A Not Detected (Not Detected); Salmonella Detected (Not Detected); Shig-toxin-producing E coli Not Detected (Not Detected); Shigella/Enterinvasive E coli Not Detected (Not Detected); Vibrio Not Detected (Not Detected); Vibrio cholerae Not Detected (Not Detected); Yersinia enterocolitica Not Detected (Not Detected)
[2024-02-21 08:35] LABS: Sapovirus Not Detected (Not Detected)
== END 2024-02-19 03:58 | disposition home or self-care (01) ==
LOC: ED 23:19
DX: N39.0 Urinary tract infection, site not specified (principal); K52.9 Noninfective gastroenteritis and colitis, unspecified; E86.0 Dehydration; E11.42 Type 2 diabetes mellitus with diabetic polyneuropathy; I10 Essential (primary) hypertension; E78.5 Hyperlipidemia, unspecified; Z79.84 Long term (current) use of oral hypoglycemic drugs; Z79.85 Long-term (current) use of injectable non-insulin antidiabetic drugs; Z79.899 Other long term (current) drug therapy
CPT/HCPCS: 0241U; 36000; 36415; 80053; 81001; 82150; 82274; 83605; 83690; 83735; 85025; 86308; 87086; 87493; 87507; 96374; 96375; 99284; J0696; J2270; J2405; A9270-GY; G0328